=== PATIENT | male | born 1960 | race Caucasian/White ===

== ENCOUNTER 2019-05-30 20:45 | Outpatient (REF) | payer BC, SELFPAY ==
[2019-05-30 21:00] LABS: INR 1.1 (0.9-1.1); Prothrombin Time 10.6 sec (9.3-11.0)
[2019-05-30 21:15] LABS: Abs Immature Grans 0.02 k/cumm (0.0-0.09); Absolute Basophil Count 0.04 k/cumm (0.0-0.2); Absolute Eosinophil Count 0.25 k/cumm (0.0-0.7); Absolute Lymphocyte Count 1.87 k/cumm (1.2-3.4); Absolute Monocyte Count 0.86 k/cumm (0.11-0.7); Absolute Neutrophil Count 5.66 k/cumm (1.2-6.7); Basophils % 0.5; Eosinophils % 2.9; HCT 45.2 % (40.0-50.0); HGB 15.3 g/dL (13.5-17.5); Immature Grans % 0.2; Lymphocytes % 21.5; Mean Corp. HGB Concentration 33.8 g/dL (32.0-36.0); Mean Corpuscular Hemoglobin 32.2 pg (27.0-33.0); Mean Corpuscular Volume 95.2 fL (80-95); Mean Platelet Volume 11.1 fL (8.0-11.0); Monocytes % 9.9; Platelet Count 254 x1000/uL (130-400); RBC 4.75 m/cumm (4.50-6.00); RBC Distribution Width 13.5 % (11.8-14.1)
[2019-05-30 21:38] LABS: ALT 30 U/L (16-63); AST 20 U/L (15-37); Albumin 3.7 g/dL (3.4-5.0); Alkaline Phosphatase 122 U/L (46-116); Anion Gap 8.9 mmol/L (3-11); BUN 25 mg/dL (7-18); Bilirubin, Total 0.2 mg/dL (0.2-1.0); CO2 28.1 mmol/L (21.0-32.0); CREATININE 1.06 mg/dL (0.70-1.30); Calcium 9.2 mg/dL (8.5-10.1); Chloride 107 mmol/L (98-107); Glucose 99 mg/dL (74-106); Potassium 4.7 mmol/L (3.5-5.1); Sodium 144 mmol/L (136-145); Total Protein 6.9 g/dL (6.4-8.2)
== END 2019-05-30 21:05 ==
LOC: NCHCN 20:45
PROVIDERS: PCP Nurse Practitioner Family; Visit Provider Nurse Practitioner Family
DX: M35.1 Other overlap syndromes (principal); Z01.818 Encounter for other preprocedural examination
CPT/HCPCS: 80053; 85025; 85610

== ENCOUNTER 2019-06-26 14:27 | Outpatient (REF) | payer BC, SELFPAY | END 2019-06-26 14:47 | LOC: NCHCN 14:27 | PROVIDERS: PCP Nurse Practitioner Family; Visit Provider Internal Medicine | DX: S91.002D Unspecified open wound, left ankle, subsequent encounter (principal) | CPT/HCPCS: 87077; 87070; 87186; 87205 ==

== ENCOUNTER 2019-09-10 09:14 | Outpatient (REF) | payer BC, SELFPAY ==
[2019-09-10 21:17] LABS: Abs Immature Grans 0.01 k/cumm (0.0-0.09); Absolute Basophil Count 0.05 k/cumm (0.0-0.2); Absolute Eosinophil Count 0.17 k/cumm (0.0-0.7); Absolute Monocyte Count 0.78 k/cumm (0.11-0.7); Absolute Neutrophil Count 5.01 k/cumm (1.2-6.7); Basophils % 0.7; Eosinophils % 2.3; Immature Grans % 0.1 %; Lymphocytes % 19.9; Mean Corp. HGB Concentration 33.3 g/dL (32.0-36.0); Mean Corpuscular Hemoglobin 31.3 pg (27.0-33.0); Mean Corpuscular Volume 93.8 fL (80-95); Mean Platelet Volume 11.3 fL (8.0-11.0); Monocytes % 10.4; Neutrophils % 66.6; Platelet Count 250 x1000/uL (130-400); RBC 5.12 m/cumm (4.50-6.00); RBC Distribution Width 14.1 % (11.8-14.1); White Blood Cell Count 7.52 k/cumm (4.4-10.8)
[2019-09-10 21:18] LABS: ALT 40 U/L (16-63); AST 23 U/L (15-37); Albumin 4.1 g/dL (3.4-5.0); Alkaline Phosphatase 122 U/L (46-116); Anion Gap 8.3 mmol/L (3-11); BUN 20 mg/dL (7-18); Bilirubin, Total 0.3 mg/dL (0.2-1.0); CO2 29.7 mmol/L (21.0-32.0); CREATININE 1.24 mg/dL (0.70-1.30); Calcium 9.4 mg/dL (8.5-10.1); Chloride 106 mmol/L (98-107); Estimated GFR 59.88 (mL/min/1.73m2); Glucose 99 mg/dL (74-106); Potassium 4.6 mmol/L (3.5-5.1); Sodium 144 mmol/L (136-145); Total Protein 7.4 g/dL (6.4-8.2)
[2019-09-10 21:37] LABS: Calculated LDL 167 mg/dL (<100); Cholesterol 238 mg/dL (<200); HDL Cholesterol 48 mg/dL (40-60); Triglyceride 118 mg/dL (<150)
== END 2019-09-10 09:34 ==
LOC: NCHCN 09:14
PROVIDERS: PCP Nurse Practitioner Family; Visit Provider Nurse Practitioner Family
DX: Z13.220 Encounter for screening for lipoid disorders (principal); M35.1 Other overlap syndromes; Z79.899 Other long term (current) drug therapy
CPT/HCPCS: 80053; 80061; 85025

== ENCOUNTER 2019-10-15 12:32 | Outpatient (REF) | payer BC, SELFPAY ==
[2019-10-15 20:32] LABS: ALT 32 U/L (16-63); AST 28 U/L (15-37); Albumin 4.1 g/dL (3.4-5.0); Alkaline Phosphatase 143 U/L (46-116); Anion Gap 6.4 mmol/L (3-11); BUN 20 mg/dL (7-18); Bilirubin, Total 0.6 mg/dL (0.2-1.0); CO2 30.6 mmol/L (21.0-32.0); CREATININE 1.23 mg/dL (0.70-1.30); Calcium 9.4 mg/dL (8.5-10.1); Calculated LDL 109 mg/dL (<100); Chloride 103 mmol/L (98-107); Cholesterol 174 mg/dL (<200); Glucose 86 mg/dL (74-106); HDL Cholesterol 48 mg/dL (40-60); Potassium 4.7 mmol/L (3.5-5.1); Sodium 140 mmol/L (136-145); Total Protein 7.6 g/dL (6.4-8.2); Triglyceride 88 mg/dL (<150)
[2019-10-16 12:18] LABS: GGT 37 U/L (15-85)
== END 2019-10-15 12:52 ==
LOC: NCHCN 12:32
PROVIDERS: PCP Nurse Practitioner Family; Visit Provider Nurse Practitioner Family
DX: I70.219 Atherosclerosis of native arteries of extremities with intermittent claudication, unspecified extremity (principal); R74.8 Abnormal levels of other serum enzymes
CPT/HCPCS: 80053; 80061; 82977

== ENCOUNTER 2019-11-16 11:30 | Outpatient (REF) | payer BC, SELFPAY ==
[2019-11-16 21:02] LABS: ALT 31 U/L (16-63); AST 24 U/L (15-37); Albumin 3.7 g/dL (3.4-5.0); Alkaline Phosphatase 152 U/L (46-116); Anion Gap 4.3 mmol/L (3-11); BUN 16 mg/dL (7-18); Bilirubin, Total 0.5 mg/dL (0.2-1.0); CO2 31.7 mmol/L (21.0-32.0); CREATININE 1.15 mg/dL (0.70-1.30); Calcium 8.8 mg/dL (8.5-10.1); Chloride 106 mmol/L (98-107); Glucose 87 mg/dL (74-106); Potassium 4.1 mmol/L (3.5-5.1); Sodium 142 mmol/L (136-145); TSH (W/Ref FT4) 1.45 uIU/mL (0.36-3.74)
[2019-11-16 21:16] LABS: Calculated LDL 74 mg/dL (<100); Cholesterol 134 mg/dL (<200); HDL Cholesterol 51 mg/dL (40-60); Triglyceride 46 mg/dL (<150)
[2019-11-19 07:29] LABS: Vitamin D 25 Total 30.5 ng/ml (30-100)
[2019-11-19 12:46] LABS: Parathyroid Hormone,Intact 53 pg/mL (19-88)
== END 2019-11-16 11:50 ==
LOC: NCHCN 11:30
PROVIDERS: PCP Nurse Practitioner Family; Visit Provider Nurse Practitioner Family
DX: I70.219 Atherosclerosis of native arteries of extremities with intermittent claudication, unspecified extremity (principal); R74.8 Abnormal levels of other serum enzymes
CPT/HCPCS: 80053; 80061; 82306; 83970; 84443

== ENCOUNTER 2019-12-10 09:44 | Outpatient (REF) | payer BC, SELFPAY ==
[2019-12-12 09:16] LABS: PSA, Screening 3.3 ng/mL (0.0-3.5)
[2019-12-12 11:41] LABS: HIV-1/2 Ag & Ab Screen Negative (Negative)
[2019-12-12 11:47] LABS: Hepatitis C Ab w Rflx HCV PCR Reactive (Negative)
[2019-12-21 09:55] LABS: HCV RNA Qualitative Undetected (Undetected)
== END 2019-12-10 10:04 ==
LOC: NCHCN 09:44
PROVIDERS: PCP Nurse Practitioner Family; Visit Provider Nurse Practitioner Family
DX: Z11.4 Encounter for screening for human immunodeficiency virus [HIV] (principal); Z11.59 Encounter for screening for other viral diseases; Z12.5 Encounter for screening for malignant neoplasm of prostate
CPT/HCPCS: 84153; 86803; 87389; 87522

== ENCOUNTER 2020-02-15 12:36 | Outpatient (REF) | payer BC, SELFPAY ==
[2020-02-15 22:35] LABS: Abs Immature Grans 0.03 10^3/uL (0.0-0.06); Absolute Basophil Count 0.06 10^3/uL (0.0-0.2); Absolute Eosinophil Count 0.16 10^3/uL (0.0-0.7); Absolute Lymphocyte Count 1.44 10^3/uL (1.2-3.4); Absolute Monocyte Count 0.68 10^3/uL (0.1-0.8); Absolute Neutrophil Count 5.09 10^3/uL (1.2-6.7); Basophils % 0.8; Eosinophils % 2.1; HCT 49.2 % (40.0-50.0); HGB 16.3 g/dL (13.5-17.5); Immature Grans % 0.4; Lymphocytes % 19.3; MCH 32.1 pg (27.0-33.0); MCHC 33.1 % (32.0-36.0); MPV 11.2 fL (8.0-11.0); Monocytes % 9.1; Neutrophils % 68.3; Nucleated RBC 0 %; Platelet Count 236 10^3/uL (130-400); RBC 5.07 10^6/uL (4.36-5.78); RDW 13.7 % (11.8-14.1); RDW-SD 48.4 fL; WBC 7.46 10^3/uL (4.4-10.8)
[2020-02-15 22:53] LABS: ALT 33 U/L (16-63); AST 22 U/L (15-37); Albumin 3.6 g/dL (3.4-5.0); Alkaline Phosphatase 154 U/L (46-116); Anion Gap 7.7 mmol/L (3-11); BUN 20 mg/dL (7-18); Bilirubin, Total 0.6 mg/dL (0.2-1.0); CO2 29.3 mmol/L (21.0-32.0); CREATININE 1.13 mg/dL (0.70-1.30); Chloride 103 mmol/L (98-107); Glucose 90 mg/dL (74-106); Potassium 4.2 mmol/L (3.5-5.1); Sodium 140 mmol/L (136-145)
== END 2020-02-15 12:56 ==
LOC: LBN 12:36
PROVIDERS: PCP Nurse Practitioner Family; Visit Provider Internal Medicine Rheumatology
DX: M35.1 Other overlap syndromes (principal); Z79.899 Other long term (current) drug therapy
CPT/HCPCS: 80053; 85025

== ENCOUNTER 2020-03-27 14:58 | Outpatient (REF) | payer BC, SELFPAY ==
[2020-03-31 11:12] LABS: Lyme Ab w Rflx to Lyme Confirm Negative (Negative)
[2020-03-31 20:28] LABS: Anaplasma phagocytophilum Negative (Negative); B. miyamotoi PCR Negative (Negative); Babesia divergens/MO-1 Negative (Negative); Babesia duncani Negative (Negative); Babesia microti Negative (Negative); Ehrlichia chaffeensis Negative (Negative); Ehrlichia ewingii/canis Negative (Negative); Ehrlichia muris eauclairensis Negative (Negative)
== END 2020-03-27 15:18 ==
LOC: NCHCN 14:58
PROVIDERS: PCP Nurse Practitioner Family; Visit Provider Family Medicine
DX: G51.0 Bell's palsy (principal)
CPT/HCPCS: 87798; 86618

== ENCOUNTER 2020-05-12 21:11 | Outpatient (REF) | payer BC, SELFPAY ==
[2020-05-12 21:17] LABS: Abs Immature Grans 0.03 10^3/uL (0.0-0.06); Absolute Basophil Count 0.07 10^3/uL (0.0-0.2); Absolute Eosinophil Count 0.16 10^3/uL (0.0-0.7); Absolute Lymphocyte Count 1.65 10^3/uL (1.2-3.4); Absolute Monocyte Count 0.62 10^3/uL (0.1-0.8); Basophils % 0.8; Eosinophils % 1.9; HCT 48.7 % (40.0-50.0); HGB 16.2 g/dL (13.5-17.5); Immature Grans % 0.4; Lymphocytes % 19.8; MCH 32.3 pg (27.0-33.0); MCHC 33.3 % (32.0-36.0); MCV 97.2 fL (80-95); MPV 11.5 fL (8.0-11.0); Monocytes % 7.4; Neutrophils % 69.7; Nucleated RBC 0 %; Platelet Count 216 10^3/uL (130-400); RBC 5.01 10^6/uL (4.36-5.78); RDW 13.4 % (11.8-14.1); WBC 8.33 10^3/uL (4.4-10.8)
[2020-05-12 21:51] LABS: ALT 36 U/L (16-63); AST 23 U/L (15-37); Albumin 3.7 g/dL (3.4-5.0); Alkaline Phosphatase 139 U/L (46-116); Anion Gap 10.2 mmol/L (3-11); BUN 22 mg/dL (7-18); Bilirubin, Total 0.3 mg/dL (0.2-1.0); CO2 24.8 mmol/L (21.0-32.0); Calcium 8.4 mg/dL (8.5-10.1); Chloride 106 mmol/L (98-107); Glucose 87 mg/dL (74-106); Potassium 4.7 mmol/L (3.5-5.1); Sodium 141 mmol/L (136-145); Total Protein 6.7 g/dL (6.4-8.2)
== END 2020-05-12 21:31 ==
LOC: LBN 21:11
PROVIDERS: PCP Nurse Practitioner Family; Referring Provider Nurse Practitioner Family; Visit Provider Internal Medicine Rheumatology
DX: M35.1 Other overlap syndromes (principal); Z79.899 Other long term (current) drug therapy
CPT/HCPCS: 80053; 85025

== ENCOUNTER 2020-08-12 11:47 | Outpatient (REF) | payer OTHER, SELFPAY ==
[2020-08-12 13:38] LABS: Abs Immature Grans 0.02 10^3/uL (0.0-0.06); Absolute Basophil Count 0.08 10^3/uL (0.0-0.2); Absolute Eosinophil Count 0.24 10^3/uL (0.0-0.7); Absolute Lymphocyte Count 1.64 10^3/uL (1.2-3.4); Absolute Monocyte Count 0.93 10^3/uL (0.1-0.8); Absolute Neutrophil Count 6.68 10^3/uL (1.2-6.7); Basophils % 0.8; Eosinophils % 2.5; HCT 48.8 % (40.0-50.0); HGB 16.2 g/dL (13.5-17.5); Immature Grans % 0.2; Lymphocytes % 17.1; MCHC 33.2 % (32.0-36.0); MCV 96.4 fL (80-95); MPV 11.2 fL (8.0-11.0); Monocytes % 9.7; Neutrophils % 69.7; Nucleated RBC 0 %; Platelet Count 246 10^3/uL (130-400); RBC 5.06 10^6/uL (4.36-5.78); RDW-SD 46.2 fL; WBC 9.59 10^3/uL (4.4-10.8)
[2020-08-12 13:47] LABS: ALT 31 U/L (16-63); AST 20 U/L (15-37); Albumin 3.8 g/dL (3.4-5.0); Alkaline Phosphatase 152 U/L (46-116); Anion Gap 9.5 mmol/L (3-11); BUN 18 mg/dL (7-18); Bilirubin, Total 0.6 mg/dL (0.2-1.0); CO2 28.5 mmol/L (21.0-32.0); CREATININE 1.2 mg/dL (0.70-1.30); Calcium 9.5 mg/dL (8.5-10.1); Chloride 104 mmol/L (98-107); Glucose 97 mg/dL (74-106); Potassium 4.4 mmol/L (3.5-5.1); Sodium 142 mmol/L (136-145); Total Protein 7.1 g/dL (6.4-8.2)
[2020-08-15 15:00] LABS: Alkaline Phosphatase 151 U/L (40 - 129); Bone % 37.9 % (19.1-67.7); Liver % 57.5 % (27.8-76.3); Liver 2% 4.6 % (0.0-8.0)
== END 2020-08-12 11:48 | disposition home or self-care (01) ==
LOC: NCHCN 11:47
PROVIDERS: Internal Medicine Rheumatology; PCP Nurse Practitioner Family; Visit Provider Nurse Practitioner Family
DX: M35.1 Other overlap syndromes (principal); Z79.899 Other long term (current) drug therapy; R74.8 Abnormal levels of other serum enzymes
CPT/HCPCS: 80053; 84075; 84080; 85025

== ENCOUNTER 2020-11-10 08:54 | Outpatient (REF) | payer OTHER, SELFPAY ==
[2020-11-10 13:23] LABS: Abs Immature Grans 0.02 10^3/uL (0.0-0.06); Absolute Basophil Count 0.08 10^3/uL (0.0-0.2); Absolute Eosinophil Count 0.16 10^3/uL (0.0-0.7); Absolute Monocyte Count 0.64 10^3/uL (0.1-0.8); Basophils % 0.9; Eosinophils % 1.9; HCT 47.7 % (40.0-50.0); HGB 15.6 g/dL (13.5-17.5); Immature Grans % 0.2; Lymphocytes % 15.1; MCH 31.2 pg (27.0-33.0); MCHC 32.7 % (32.0-36.0); MCV 95.4 fL (80-95); Monocytes % 7.4; Neutrophils % 74.5; Nucleated RBC 0 %; Platelet Count 267 10^3/uL (130-400); RDW 13.4 % (11.8-14.1); RDW-SD 47.2 fL
[2020-11-10 13:49] LABS: ALT 41 U/L (16-63); AST 25 U/L (15-37); Albumin 3.5 g/dL (3.4-5.0); Alkaline Phosphatase 158 U/L (46-116); Anion Gap 9.6 mmol/L (3-11); BUN 19 mg/dL (7-18); Bilirubin, Total 0.4 mg/dL (0.2-1.0); CO2 27.4 mmol/L (21.0-32.0); CREATININE 1.2 mg/dL (0.70-1.30); Calcium 8.6 mg/dL (8.5-10.1); Calculated LDL 82 mg/dL (<100); Chloride 106 mmol/L (98-107); Cholesterol 143 mg/dL (<200); Glucose 90 mg/dL (74-106); HDL Cholesterol 47 mg/dL (40-60); Potassium 4.4 mmol/L (3.5-5.1); Sodium 143 mmol/L (136-145); Total Protein 6.9 g/dL (6.4-8.2); Triglyceride 74 mg/dL (<150)
[2020-11-10 14:02] LABS: Hemoglobin A1C 5.6 % (<5.7)
== END 2020-11-10 08:55 | disposition home or self-care (01) ==
LOC: NCHCN 08:54
PROVIDERS: PCP Nurse Practitioner Family; Visit Provider Nurse Practitioner Family
DX: R73.03 Prediabetes (principal); Z13.220 Encounter for screening for lipoid disorders; M35.1 Other overlap syndromes; Z79.899 Other long term (current) drug therapy
CPT/HCPCS: 80053; 80061; 83036; 85025

== ENCOUNTER 2021-02-09 10:19 | Outpatient (REF) | payer OTHER, SELFPAY ==
[2021-02-09 14:17] LABS: Abs Immature Grans 0.02 10^3/uL (0.0-0.06); Absolute Basophil Count 0.06 10^3/uL (0.0-0.2); Absolute Eosinophil Count 0.16 10^3/uL (0.0-0.7); Absolute Monocyte Count 0.84 10^3/uL (0.1-0.8); Absolute Neutrophil Count 5.62 10^3/uL (1.2-6.7); Basophils % 0.8; HCT 47.8 % (40.0-50.0); HGB 15.6 g/dL (13.5-17.5); Immature Grans % 0.3; Lymphocytes % 16.3; MCHC 32.6 % (32.0-36.0); MPV 11.7 fL (8.0-11.0); Monocytes % 10.5; Neutrophils % 70.1; Nucleated RBC 0 %; Platelet Count 214 10^3/uL (130-400); RBC 4.88 10^6/uL (4.36-5.78); RDW 14.2 % (11.8-14.1); RDW-SD 51.2 fL
[2021-02-09 14:31] LABS: ALT 28 U/L (16-63); AST 18 U/L (15-37); Albumin 3.7 g/dL (3.4-5.0); Alkaline Phosphatase 149 U/L (46-116); Anion Gap 10.2 mmol/L (3-11); BUN 19 mg/dL (7-18); Bilirubin, Total 0.4 mg/dL (0.2-1.0); CO2 27.8 mmol/L (21.0-32.0); CREATININE 1.1 mg/dL (0.70-1.30); Calcium 8.7 mg/dL (8.5-10.1); Chloride 106 mmol/L (98-107); Glucose 84 mg/dL (74-106); Potassium 4.5 mmol/L (3.5-5.1); Sodium 144 mmol/L (136-145); Total Protein 6.8 g/dL (6.4-8.2)
== END 2021-02-09 10:20 | disposition home or self-care (01) ==
LOC: NCHCN 10:19
PROVIDERS: PCP Nurse Practitioner Family; Visit Provider Internal Medicine Rheumatology
DX: M35.1 Other overlap syndromes (principal); Z79.899 Other long term (current) drug therapy
CPT/HCPCS: 80053; 85025

== ENCOUNTER 2021-04-27 09:46 | Outpatient (REF) | payer OTHER, SELFPAY ==
[2021-04-27 14:32] LABS: Abs Immature Grans 0.02 10^3/uL (0.0-0.06); Absolute Eosinophil Count 0.22 10^3/uL (0.0-0.7); Absolute Lymphocyte Count 1.46 10^3/uL (1.2-3.4); Absolute Monocyte Count 0.72 10^3/uL (0.1-0.8); Absolute Neutrophil Count 6.64 10^3/uL (1.2-6.7); Basophils % 1.1; Eosinophils % 2.4; HCT 49.6 % (40.0-50.0); Immature Grans % 0.2; Lymphocytes % 15.9; MCH 31.6 pg (27.0-33.0); MCHC 32.3 % (32.0-36.0); MPV 11.4 fL (8.0-11.0); Monocytes % 7.9; Neutrophils % 72.5; Nucleated RBC 0 %; Platelet Count 236 10^3/uL (130-400); RBC 5.06 10^6/uL (4.36-5.78); RDW 13.7 % (11.8-14.1); RDW-SD 49.6 fL; WBC 9.16 10^3/uL (4.4-10.8)
[2021-04-27 14:42] LABS: ALT 32 U/L (16-63); AST 19 U/L (15-37); Albumin 3.8 g/dL (3.4-5.0); Alkaline Phosphatase 140 U/L (46-116); Anion Gap 12.3 mmol/L (3-11); BUN 20 mg/dL (7-18); Bilirubin, Total 0.4 mg/dL (0.2-1.0); CO2 24.7 mmol/L (21.0-32.0); CREATININE 1.1 mg/dL (0.70-1.30); Chloride 106 mmol/L (98-107); Glucose 100 mg/dL (74-106); Potassium 4.5 mmol/L (3.5-5.1); Sodium 143 mmol/L (136-145); Total Protein 6.9 g/dL (6.4-8.2)
== END 2021-04-27 09:47 | disposition home or self-care (01) ==
LOC: LBN 09:46
PROVIDERS: PCP Nurse Practitioner Family; Visit Provider Internal Medicine Rheumatology
DX: Z79.899 Other long term (current) drug therapy (principal); M35.1 Other overlap syndromes
CPT/HCPCS: 80053; 85025

== ENCOUNTER 2021-07-28 14:25 | Outpatient (REF) | payer OTHER, SELFPAY ==
[2021-07-28 14:35] LABS: Abs Immature Grans 0.03 10^3/uL (0.0-0.06); Absolute Basophil Count 0.07 10^3/uL (0.0-0.2); Absolute Eosinophil Count 0.21 10^3/uL (0.0-0.7); Absolute Lymphocyte Count 1.62 10^3/uL (1.2-3.4); Absolute Monocyte Count 0.74 10^3/uL (0.1-0.8); Absolute Neutrophil Count 6.62 10^3/uL (1.2-6.7); Basophils % 0.8; Eosinophils % 2.3; HCT 47.4 % (40.0-50.0); HGB 15.3 g/dL (13.5-17.5); Immature Grans % 0.3; Lymphocytes % 17.4; MCH 31.3 pg (27.0-33.0); MCHC 32.3 % (32.0-36.0); MCV 96.9 fL (80-95); MPV 11.5 fL (8.0-11.0); Neutrophils % 71.2; Nucleated RBC 0 %; Platelet Count 255 10^3/uL (130-400); RBC 4.89 10^6/uL (4.36-5.78); RDW 12.9 % (11.8-14.1); RDW-SD 45.8 fL; WBC 9.29 10^3/uL (4.4-10.8)
[2021-07-28 14:40] LABS: ALT 30 U/L (16-63); AST 26 U/L (15-37); Albumin 3.9 g/dL (3.4-5.0); Alkaline Phosphatase 140 U/L (46-116); BUN 21 mg/dL (7-18); Bilirubin, Total 0.4 mg/dL (0.2-1.0); Calcium 9.2 mg/dL (8.5-10.1); Chloride 104 mmol/L (98-107); Glucose 92 mg/dL (74-106); Potassium 4.7 mmol/L (3.5-5.1); Sodium 139 mmol/L (136-145); Total Protein 7.2 g/dL (6.4-8.2)
== END 2021-07-28 14:26 | disposition home or self-care (01) ==
LOC: LBN 14:25
PROVIDERS: PCP Nurse Practitioner Family; Visit Provider Internal Medicine Rheumatology
DX: M35.1 Other overlap syndromes (principal); Z79.899 Other long term (current) drug therapy
CPT/HCPCS: 80053; 85025

== ENCOUNTER 2021-10-26 15:14 | Outpatient (REF) | payer MEDICARE, SELFPAY ==
[2021-10-26 17:56] LABS: Abs Immature Grans 0.02 10^3/uL (0.0-0.06); Absolute Basophil Count 0.07 10^3/uL (0.0-0.2); Absolute Eosinophil Count 0.22 10^3/uL (0.0-0.7); Absolute Lymphocyte Count 1.38 10^3/uL (1.2-3.4); Absolute Monocyte Count 0.74 10^3/uL (0.1-0.8); Absolute Neutrophil Count 5.74 10^3/uL (1.2-6.7); Basophils % 0.9; Eosinophils % 2.7; HCT 50.8 % (40.0-50.0); HGB 16.4 g/dL (13.5-17.5); Immature Grans % 0.2; Lymphocytes % 16.9; MCH 31.7 pg (27.0-33.0); MCHC 32.3 % (32.0-36.0); MCV 98 fL (80-95); MPV 11.2 fL (8.0-11.0); Monocytes % 9.1; Neutrophils % 70.2; Platelet Count 251 10^3/uL (130-400); RBC 5.18 10^6/uL (4.36-5.78); RDW 13.2 % (11.8-14.1); RDW-SD 48.5 fL; WBC 8.17 10^3/uL (4.4-10.8)
[2021-10-26 18:07] LABS: ALT 34 U/L (16-63); AST 24 U/L (15-37); Albumin 3.8 g/dL (3.4-5.0); Alkaline Phosphatase 167 U/L (46-116); Anion Gap 7.3 mmol/L (3-11); BUN 24 mg/dL (7-18); Bilirubin, Total 0.6 mg/dL (0.2-1.0); CO2 28.7 mmol/L (21.0-32.0); CREATININE 1.1 mg/dL (0.70-1.30); Calcium 8.7 mg/dL (8.5-10.1); Chloride 105 mmol/L (98-107); Glucose 86 mg/dL (74-106); Potassium 4.3 mmol/L (3.5-5.1); Sodium 141 mmol/L (136-145)
== END 2021-10-26 15:15 | disposition home or self-care (01) ==
LOC: LBN 15:14
PROVIDERS: PCP Nurse Practitioner Family; Visit Provider Internal Medicine Rheumatology
DX: G62.89 Other specified polyneuropathies (principal); Z79.899 Other long term (current) drug therapy; M35.1 Other overlap syndromes
CPT/HCPCS: 80053; 85025

== ENCOUNTER 2021-12-29 07:42 | Outpatient (REF) | payer MEDICARE, SELFPAY ==
[2021-12-29 15:19] LABS: Abs Immature Grans 0.03 10^3/uL (0.0-0.06); Absolute Basophil Count 0.07 10^3/uL (0.0-0.2); Absolute Eosinophil Count 0.19 10^3/uL (0.0-0.7); Absolute Lymphocyte Count 1.37 10^3/uL (1.2-3.4); Absolute Monocyte Count 0.66 10^3/uL (0.1-0.8); Absolute Neutrophil Count 7.46 10^3/uL (1.2-6.7); Basophils % 0.7; Eosinophils % 1.9; HCT 48.2 % (40.0-50.0); HGB 16.3 g/dL (13.5-17.5); Immature Grans % 0.3; MCH 32.3 pg (27.0-33.0); MCHC 33.8 % (32.0-36.0); MCV 96 fL (80-95); MPV 11.4 fL (8.0-11.0); Monocytes % 6.7; Neutrophils % 76.4; Platelet Count 236 10^3/uL (130-400); RBC 5.04 10^6/uL (4.36-5.78); RDW 13.8 % (11.8-14.1); RDW-SD 47.8 fL; WBC 9.78 10^3/uL (4.4-10.8)
[2021-12-29 15:33] LABS: ALT 54 U/L (16-63); AST 41 U/L (15-37); Albumin 3.6 g/dL (3.4-5.0); Alkaline Phosphatase 149 U/L (46-116); Anion Gap 9.7 mmol/L (3-11); BUN 21 mg/dL (7-18); Bilirubin, Total 0.4 mg/dL (0.2-1.0); CO2 26.3 mmol/L (21.0-32.0); CREATININE 1.2 mg/dL (0.70-1.30); Calcium 9.1 mg/dL (8.5-10.1); Chloride 104 mmol/L (98-107); Glucose 109 mg/dL (74-106); Potassium 4.1 mmol/L (3.5-5.1); Sodium 140 mmol/L (136-145); Total Protein 7.3 g/dL (6.4-8.2)
== END 2021-12-29 07:43 | disposition home or self-care (01) ==
LOC: LBN 07:42
PROVIDERS: PCP Nurse Practitioner Family; Visit Provider Internal Medicine Rheumatology
DX: M35.1 Other overlap syndromes (principal); G62.89 Other specified polyneuropathies; Z79.899 Other long term (current) drug therapy
CPT/HCPCS: 80053; 85025

== ENCOUNTER 2022-03-29 14:06 | Outpatient (REF) | payer MEDICARE, SELFPAY ==
[2022-03-29 14:33] LABS: Abs Immature Grans 0.03 10^3/uL (0.0-0.06); Absolute Basophil Count 0.06 10^3/uL (0.0-0.2); Absolute Eosinophil Count 0.19 10^3/uL (0.0-0.7); Absolute Lymphocyte Count 1.56 10^3/uL (1.2-3.4); Absolute Monocyte Count 0.77 10^3/uL (0.1-0.8); Absolute Neutrophil Count 5.73 10^3/uL (1.2-6.7); Basophils % 0.7; Eosinophils % 2.3; HCT 48.2 % (40.0-50.0); HGB 15.9 g/dL (13.5-17.5); Immature Grans % 0.4; Lymphocytes % 18.7; MCV 97 fL (80-95); MPV 11.2 fL (8.0-11.0); Monocytes % 9.2; Neutrophils % 68.7; Platelet Count 225 10^3/uL (130-400); RBC 4.97 10^6/uL (4.36-5.78); RDW 13.6 % (11.8-14.1); RDW-SD 48.5 fL; WBC 8.34 10^3/uL (4.4-10.8)
[2022-03-29 14:50] LABS: ALT 31 U/L (16-63); AST 26 U/L (15-37); Albumin 3.7 g/dL (3.4-5.0); Alkaline Phosphatase 147 U/L (46-116); Anion Gap 7.7 mmol/L (3-11); BUN 20 mg/dL (7-18); Bilirubin, Total 0.5 mg/dL (0.2-1.0); CO2 27.3 mmol/L (21.0-32.0); CREATININE 1.1 mg/dL (0.70-1.30); Calcium 9.2 mg/dL (8.5-10.1); Chloride 104 mmol/L (98-107); Estimated GFR 76.85 (mL/min/1.73m2); Glucose 107 mg/dL (74-106); Potassium 4.1 mmol/L (3.5-5.1); Sodium 139 mmol/L (136-145); Total Protein 7.4 g/dL (6.4-8.2)
== END 2022-03-29 14:07 | disposition home or self-care (01) ==
LOC: LBN 14:06
PROVIDERS: PCP Nurse Practitioner Family; Visit Provider Internal Medicine Rheumatology
DX: M35.1 Other overlap syndromes (principal); G62.89 Other specified polyneuropathies; Z79.899 Other long term (current) drug therapy
CPT/HCPCS: 80053; 85025

== ENCOUNTER 2022-06-29 07:56 | Outpatient (REF) | payer MEDICARE, SELFPAY ==
[2022-06-29 15:54] LABS: Abs Immature Grans 0.02 10^3/uL (0.0-0.06); Absolute Basophil Count 0.05 10^3/uL (0.0-0.2); Absolute Eosinophil Count 0.11 10^3/uL (0.0-0.7); Absolute Lymphocyte Count 1.11 10^3/uL (1.2-3.4); Absolute Monocyte Count 0.64 10^3/uL (0.1-0.8); Absolute Neutrophil Count 5.75 10^3/uL (1.2-6.7); Basophils % 0.7; Eosinophils % 1.4; HCT 46.5 % (40.0-50.0); HGB 15.4 g/dL (13.5-17.5); Immature Grans % 0.3; Lymphocytes % 14.5; MCH 31.7 pg (27.0-33.0); MCHC 33.1 % (32.0-36.0); MCV 96 fL (80-95); MPV 11.1 fL (8.0-11.0); Monocytes % 8.3; Neutrophils % 74.8; Platelet Count 254 10^3/uL (130-400); RBC 4.86 10^6/uL (4.36-5.78); RDW 13.2 % (11.8-14.1); RDW-SD 46.7 fL; WBC 7.68 10^3/uL (4.4-10.8)
[2022-06-29 16:10] LABS: ALT 30 U/L (16-63); AST 27 U/L (15-37); Albumin 3.8 g/dL (3.4-5.0); Alkaline Phosphatase 165 U/L (46-116); Anion Gap 8.2 mmol/L (3-11); BUN 20 mg/dL (7-18); Bilirubin, Total 0.7 mg/dL (0.2-1.0); CO2 26.8 mmol/L (21.0-32.0); CREATININE 1.1 mg/dL (0.70-1.30); Calcium 9.1 mg/dL (8.5-10.1); Chloride 104 mmol/L (98-107); Estimated GFR 76.37 (mL/min/1.73m2); Glucose 93 mg/dL (74-106); Potassium 4.2 mmol/L (3.5-5.1); Sodium 139 mmol/L (136-145); Total Protein 7.9 g/dL (6.4-8.2)
== END 2022-06-29 07:57 | disposition home or self-care (01) ==
LOC: LBN 07:56
PROVIDERS: PCP Nurse Practitioner Family; Visit Provider Nurse Practitioner Family
DX: M35.1 Other overlap syndromes (principal); G62.89 Other specified polyneuropathies; Z79.899 Other long term (current) drug therapy
CPT/HCPCS: 80053; 85025

== ENCOUNTER 2022-09-27 08:56 | Outpatient (REF) | payer MEDICARE, SELFPAY ==
[2022-09-27 15:54] LABS: Abs Immature Grans 0.03 10^3/uL (0.0-0.06); Absolute Basophil Count 0.08 10^3/uL (0.0-0.2); Absolute Eosinophil Count 0.23 10^3/uL (0.0-0.7); Absolute Lymphocyte Count 1.56 10^3/uL (1.2-3.4); Absolute Monocyte Count 0.92 10^3/uL (0.1-0.8); Absolute Neutrophil Count 5.31 10^3/uL (1.2-6.7); Eosinophils % 2.8; Immature Grans % 0.4; Lymphocytes % 19.2; MCH 31.6 pg (27.0-33.0); MCHC 32.7 % (32.0-36.0); MCV 97 fL (80-95); MPV 11.8 fL (8.0-11.0); Monocytes % 11.3; Neutrophils % 65.3; Platelet Count 251 10^3/uL (130-400); RBC 5.07 10^6/uL (4.36-5.78); RDW 13.7 % (11.8-14.1); RDW-SD 48.8 fL; WBC 8.13 10^3/uL (4.4-10.8)
[2022-09-27 16:12] LABS: ALT 26 U/L (16-63); AST 20 U/L (15-37); Albumin 3.8 g/dL (3.4-5.0); Alkaline Phosphatase 156 U/L (46-116); Anion Gap 7.6 mmol/L (3-11); BUN 20 mg/dL (7-18); Bilirubin, Total 0.4 mg/dL (0.2-1.0); CO2 28.4 mmol/L (21.0-32.0); CREATININE 1.1 mg/dL (0.70-1.30); Calcium 9.5 mg/dL (8.5-10.1); Chloride 105 mmol/L (98-107); Estimated GFR 76.37 (mL/min/1.73m2); Glucose 96 mg/dL (74-106); Potassium 4.3 mmol/L (3.5-5.1); Sodium 141 mmol/L (136-145); Total Protein 7.8 g/dL (6.4-8.2)
== END 2022-09-27 08:57 | disposition home or self-care (01) ==
LOC: LBN 08:56
PROVIDERS: PCP Nurse Practitioner Family; Visit Provider Nurse Practitioner Family
DX: M35.1 Other overlap syndromes (principal); G62.89 Other specified polyneuropathies
CPT/HCPCS: 80053; 85025

== ENCOUNTER 2022-12-29 15:57 | Outpatient (REF) | payer MEDICARE, SELFPAY ==
[2022-12-29 16:42] LABS: Abs Immature Grans 0.03 10^3/uL (0.0-0.06); Absolute Basophil Count 0.08 10^3/uL (0.0-0.2); Absolute Eosinophil Count 0.26 10^3/uL (0.0-0.7); Absolute Lymphocyte Count 1.63 10^3/uL (1.2-3.4); Absolute Monocyte Count 0.96 10^3/uL (0.1-0.8); Absolute Neutrophil Count 6.07 10^3/uL (1.2-6.7); Basophils % 0.9; Eosinophils % 2.9; HCT 47.5 % (40.0-50.0); HGB 15.6 g/dL (13.5-17.5); Immature Grans % 0.3; Lymphocytes % 18.1; MCHC 32.8 % (32.0-36.0); MCV 98 fL (80-95); MPV 12.4 fL (8.0-11.0); Monocytes % 10.6; Neutrophils % 67.2; Platelet Count 273 10^3/uL (130-400); RBC 4.87 10^6/uL (4.36-5.78); RDW 13.5 % (11.8-14.1); RDW-SD 48.5 fL; WBC 9.03 10^3/uL (4.4-10.8)
[2022-12-29 17:03] LABS: ALT 26 U/L (16-63); AST 24 U/L (15-37); Albumin 3.5 g/dL (3.4-5.0); Alkaline Phosphatase 154 U/L (46-116); Anion Gap 8.2 mmol/L (3-11); BUN 20 mg/dL (7-18); Bilirubin, Total 0.4 mg/dL (0.2-1.0); CO2 27.8 mmol/L (21.0-32.0); CREATININE 1.1 mg/dL (0.70-1.30); Calcium 9.3 mg/dL (8.5-10.1); Chloride 106 mmol/L (98-107); Estimated GFR 76.37 (mL/min/1.73m2); Glucose 92 mg/dL (74-106); Potassium 4.8 mmol/L (3.5-5.1); Sodium 142 mmol/L (136-145); Total Protein 7.9 g/dL (6.4-8.2)
== END 2022-12-29 15:58 | disposition home or self-care (01) ==
LOC: LBN 15:57
PROVIDERS: PCP Nurse Practitioner Family; Visit Provider Nurse Practitioner Family
DX: M35.1 Other overlap syndromes (principal); G62.89 Other specified polyneuropathies; Z79.899 Other long term (current) drug therapy
CPT/HCPCS: 80053; 85025

== ENCOUNTER 2023-03-29 14:48 | Outpatient (REF) | payer MEDICARE, SELFPAY ==
[2023-03-29 16:08] LABS: ALT 28 U/L (16-63); AST 25 U/L (15-37); Albumin 3.7 g/dL (3.4-5.0); Alkaline Phosphatase 161 U/L (46-116); Anion Gap 9.7 mmol/L (3-11); BUN 22 mg/dL (7-18); Bilirubin, Total 0.4 mg/dL (0.2-1.0); CO2 25.3 mmol/L (21.0-32.0); CREATININE 1.2 mg/dL (0.70-1.30); Calcium 9.6 mg/dL (8.5-10.1); Chloride 103 mmol/L (98-107); Glucose 125 mg/dL (74-106); Sodium 138 mmol/L (136-145)
[2023-03-29 16:10] LABS: Abs Immature Grans 0.03 10^3/uL (0.0-0.06); Absolute Basophil Count 0.08 10^3/uL (0.0-0.2); Absolute Eosinophil Count 0.11 10^3/uL (0.0-0.7); Absolute Lymphocyte Count 1.28 10^3/uL (1.2-3.4); Absolute Monocyte Count 0.69 10^3/uL (0.1-0.8); Absolute Neutrophil Count 5.95 10^3/uL (1.2-6.7); Eosinophils % 1.4; HCT 47.5 % (40.0-50.0); HGB 15.6 g/dL (13.5-17.5); Immature Grans % 0.4; Lymphocytes % 15.7; MCH 31.3 pg (27.0-33.0); MCHC 32.8 % (32.0-36.0); MCV 95 fL (80-95); MPV 11.7 fL (8.0-11.0); Monocytes % 8.5; Platelet Count 273 10^3/uL (130-400); RBC 4.99 10^6/uL (4.36-5.78); RDW-SD 48.7 fL; WBC 8.14 10^3/uL (4.4-10.8)
[2023-03-29 16:37] LABS: Total Protein 7.8 g/dL (6.4-8.2)
== END 2023-03-29 14:49 | disposition home or self-care (01) ==
LOC: LBN 14:48
PROVIDERS: PCP Nurse Practitioner Family; Visit Provider Nurse Practitioner Family
DX: M35.1 Other overlap syndromes (principal); G62.89 Other specified polyneuropathies; Z79.899 Other long term (current) drug therapy
CPT/HCPCS: 80053; 85025

== ENCOUNTER 2023-06-30 10:37 | Outpatient (REF) | payer MEDICARE, SELFPAY ==
--- OUTSIDE RECORDS SUMMARY | 2023-06-30 10:40 | XMS_ITS | CCD ---
Author Name Unknown Address [address] [place] [address] [id number] Organization Unknown Address [address] [place] [address] [id number] Care Team Providers Care Brick Cleaner Name Role Phone DAVID HENSON Attending Physician [phone] Vital Signs Unknown or Not Available. Allergies Allergy Code Allergy Type Reaction Status PENICILLINS (CLASS) 84065 Drug allergy UNKNOWN Act amara Procedures Unknown or Not Available. History of Immunizations Unknown or Not Available. Problems Problem Code Start Date Resolved Date Status Carpal tunnel syndrome of lt arm [id number] Active Results Unknown or Not Available. Active Medications Medication Code Dose Units Frequency Route Modificatio n Start Date/Time Ibuprofen 200MG Oral Tablet 563393 3 TABLET THREE TIMES A DAY ORAL 08/03/2022 11:21 Prescription Detail TAKE 3 TABLET ORAL THREE TIMES A DAY FOR 3-5 DAYS THEN NEEDED Medications Administered During Visit Unknown or Not Available. Encounters Encounter Diagnosis Diagnosis Code Start Date Carpal tunnel syndrome, right upper limb G5601 11/18/2022 Social History Smoking Status Code Start Date End Date Current every day smoker [id number] Patient Decision Aids Unknown or Not Available. Discharge Instructions You were admitted to [facility] on 11/18/2022 00:25 with a principal diagnosis of Carpal tunnel syndrome, right upper limb You were discharged from [facility] on 11/18/2022 00:25 Should you have any questions prior to discharge, please contact a member of your healthcare team. If you have left the hospital and have any questions, please contact your primary care physician. Chief Complaint and Reason For Visit Unknown or Not Available. Function Status Unknown or Not Available. Plan of Care Unknown or Not Available. Referral/Transition of Care Unknown or Not Available.
--- OUTSIDE RECORDS SUMMARY | 2023-06-30 10:40 | XMS_ITS | CCD ---
Author Name Unknown Address [address] [place] [address] [id number] Organization Unknown Address [address] [place], [place] [id number] Care Team Providers Care Shoe Repairer Apprentice Name Role Phone DAVID HENSON Attending Physician [phone] DAVID HENSON Rounding (Secondary) Physic justen [phone] Vital Signs Unknown or Not Available. Allergies Allergy Code Allergy Type Reaction Status PENICILLINS (CLASS) 65961 Drug allergy UNKNOWN Act amara Procedures Unknown or Not Available. History of Immunizations Unknown or Not Available. Problems Problem Code Start Date Resolved Date Status Carpal tunnel syndrome of lt arm [id number] Active Results Unknown or Not Available. Active Medications Medication Code Dose Units Frequency Route Modificatio n Start Date/Time Ibuprofen 200MG Oral Tablet 835168 3 TABLET THREE TIMES A DAY ORAL 08/03/2022 11:21 Prescription Detail TAKE 3 TABLET ORAL THREE TIMES A DAY FOR 3-5 DAYS THEN NEEDED Medications Administered During Visit Unknown or Not Available. Encounters Encounter Diagnosis Diagnosis Code Start Date Dehiscence of external surgical incision wound 1 [id number] 11/29/2022 Social History Smoking Status Code Start Date End Date Current every day smoker [id number] Patient Decision Aids Unknown or Not Available. Discharge Instructions You were admitted to [facility] on 11/29/2022 00:00 with a principal diagnosis of Disruption of external operation (surgical) wound, not elsewhere classified, initial encounter You were discharged from [facility] on 11/29/2022 00:00 Should you have any questions prior to [...]
--- OUTSIDE RECORDS SUMMARY | 2023-06-30 10:40 | XMS_ITS | CCD ---
Author Name Unknown Address [address] [place] [address] [id number] Organization Unknown Address [address] [place] [address] [phone] Care Team Providers Care Seed Cleaning Machine Operator Name Role Phone NIRU PIPER Attending Physician [phone] NIRU PIPER Rounding (Secondary) Physician [phone] Vital Signs Unknown or Not Available. Allergies Allergy Code Allergy Type Reaction Status PENICILLINS (CLASS) 15765 Drug allergy UNKNOWN Act amara Procedures Unknown or Not Available. History of Immunizations Unknown or Not Available. Problems Problem Code Start Date Resolved Date Status Carpal tunnel syndrome of lt arm [id number] Active Results Unknown or Not Available. Active Medications Medication Code Dose Units Frequency Route Modificatio n Start Date/Time Ibuprofen 200MG Oral Tablet 358266 3 TABLET THREE TIMES A DAY ORAL 08/03/2022 11:21 Prescription Detail TAKE 3 TABLET ORAL THREE TIMES A DAY FOR 3-5 DAYS THEN NEEDED Medications Administered During Visit Unknown or Not Available. Encounters Encounter Diagnosis Diagnosis Code Start Date Procedure on nervous system [id number] 09/26 Social History Smoking Status Code Start Date End Date Current every day smoker 943167437 Patient Decision Aids Unknown or Not Available. Discharge Instructions You were admitted to [facility] on 10/21/2022 00:00 with a principal diagnosis of Encounter for surgical aftercare following surgery on the nervous system You were discharged from [facility] on 10/21/2022 00:00 Should you have any questions prior [...]
--- OUTSIDE RECORDS SUMMARY | 2023-06-30 10:40 | XMS_ITS | CCD ---
Author Name Unknown Address [address] [place] [address] [phone] Organization Unknown Address [address] [place] [address] [phone] Care Team Providers Care Hospice Fellow Name Role Phone ROOMETARNALDO Attending Physician [phone] Vital Signs Unknown or Not Available. Allergies Allergy Code Allergy Type Reaction Status PENICILLINS (CLASS) 35180 Drug allergy UNKNOWN Act amara Procedures Procedure Code Procedure Type Date Nerve Conduction Studies 7-8 Studies 69353 CPT 09/14/2022 Needle EMG Ea Extremity w/Paraspinl Area Limited 00500 CPT 09/14/2022 History of Immunizations Unknown or Not Available. Problems Problem Code Start Date Resolved Date Status Carpal tunnel syndrome of lt arm 023728759969846 Active Results Unknown or Not Available. Active Medications Medication Code Dose Units Frequency Route Modificatio n Start Date/Time Ibuprofen 200MG Oral Tablet 037947 3 TABLET THREE TIMES A DAY ORAL 08/03/2022 11:21 Prescription Detail TAKE 3 TABLET ORAL THREE TIMES A DAY FOR 3-5 DAYS THEN NEEDED Medications Administered During Visit Unknown or Not Available. Encounters Encounter Diagnosis Diagnosis Code Start Date Anesthesia of skin R200 09/14/2022 Social History Smoking Status Code Start Date End Date Current every day smoker 230070894 Patient Decision Aids Unknown or Not Available. Discharge Instructions You were admitted to [facility] on 09/14/2022 12:20 with a principal diagnosis of Anesthesia of skin You had the following procedures done:Nerve Conduction Studies 7-8 StudiesNeedle EMG Ea Extremity w/Paraspinl Area Limited You were discharged from [facility] on 09/14/2022 12:20 Should you have any questions prior to [...]
--- OUTSIDE RECORDS SUMMARY | 2023-06-30 10:40 | XMS_ITS | CCD ---
Author Name Unknown Address [address] [place] [address] [phone] Organization Unknown Address [address] [place] [address] [phone] Care Team Providers Care Orchestra Conductor Name Role Phone DAVID HENSON Attending Physician [phone] Vital Signs Unknown or Not Available. Allergies Allergy Code Allergy Type Reaction Status PENICILLINS (CLASS) 29868 Drug allergy UNKNOWN Act amara Procedures Procedure Code Procedure Type Date Neuroplasty &/Or Transpositi on; Median Nerve At Carpal Tunnel 18570 CPT 10/12/2022 History of Immunizations Unknown or Not Available. Problems Problem Code Start Date Resolved Date Status Carpal tunnel syndrome of lt arm 424140566275269 Active Results Unknown or Not Available. Active Medications Medications Administered During Visit Medication Dose Units Frequency Route Date/Time of Last Dose ACETAMINOPHEN TABLET: 325MG 975 MG X1 PO 10/12/2022 07:23 CELECOXIB CAPSULE: 100MG 200 MG X1 PO 10/12/2022 07:23 Encounters Encounter Diagnosis Diagnosis Code Start Date Carpal tunnel syndrome, left upper limb G5602 10/12/2022 Social History Smoking Status Code Start Date End Date Current every day smoker 844460107 Patient Decision Aids Unknown or Not Available. Discharge Instructions You were admitted to [facility] on 10/12/2022 06:54 with a principal diagnosis of Carpal tunnel syndrome, left upper limb You had the following procedures done:Neuroplasty &/Or Transposition; Median Nerve At Carpal Tunnel You were discharged from [facility] on 10/12/2022 08:55 Should you have any questions prior to [...]
--- OUTSIDE RECORDS SUMMARY | 2023-06-30 10:40 | XMS_ITS | CCD ---
Author Name Unknown Address [address] [place] [address] [id number] Organization Unknown Address [address] [place] [address] [phone] Care Team Providers Care Poke In Name Role Phone NIRU PIPER Attending Physician [phone] NIRU PIPER Rounding (Secondary) Physician [phone] Vital Signs Unknown or Not Available. Allergies Allergy Code Allergy Type Reaction Status PENICILLINS (CLASS) 18299 Drug allergy UNKNOWN Act amara Procedures Unknown or Not Available. History of Immunizations Unknown or Not Available. Problems Problem Code Start Date Resolved Date Status Carpal tunnel syndrome of lt arm 272786616924101 Active Results Unknown or Not Available. Active Medications Medication Code Dose Units Frequency Route Modificatio n Start Date/Time Ibuprofen 200MG Oral Tablet 639409 3 TABLET THREE TIMES A DAY ORAL 08/03/2022 11:21 Prescription Detail TAKE 3 TABLET ORAL THREE TIMES A DAY FOR 3-5 DAYS THEN NEEDED Medications Administered During Visit Unknown or Not Available. Encounters Encounter Diagnosis Diagnosis Code Start Date Anesthesia of skin 749759018 08/06/2022 Social History Smoking Status Code Start Date End Date Current every day smoker 772868184 Patient Decision Aids Unknown or Not Available. Discharge Instructions You were admitted to [facility] on 08/06/2022 00:00 with a principal diagnosis of Anesthesia of skin You were discharged from [facility] on 08/06/2022 00:00 Should you have any questions prior [...]
--- OUTSIDE RECORDS SUMMARY | 2023-06-30 10:40 | XMS_ITS | CCD ---
Author Name Unknown Address [address] [place] [address] [phone] Organization Unknown Address [address] [place], [place] [phone] Care Team Providers Care Concert Promoter Name Role Phone DAVID HENSON Attending Physician [phone] DAVID HENSON Rounding (Secondary) Physic justen [phone] Vital Signs Unknown or Not Available. Allergies Allergy Code Allergy Type Reaction Status PENICILLINS (CLASS) 97293 Drug allergy UNKNOWN Act amara Procedures Unknown or Not Available. History of Immunizations Unknown or Not Available. Problems Problem Code Start Date Resolved Date Status Carpal tunnel syndrome of lt arm 099012297056004 Active Results Unknown or Not Available. Active Medications Medication Code Dose Units Frequency Route Modificatio n Start Date/Time Ibuprofen 200MG Oral Tablet 074523 3 TABLET THREE TIMES A DAY ORAL 08/03/2022 11:21 Prescription Detail TAKE 3 TABLET ORAL THREE TIMES A DAY FOR 3-5 DAYS THEN NEEDED Medications Administered During Visit Unknown or Not Available. Encounters Encounter Diagnosis Diagnosis Code Start Date Carpal tunnel syndrome, bilateral upper limbs G5 603 10/04/2022 Social History Smoking Status Code Start Date End Date Current every day smoker 379752615 Patient Decision Aids Unknown or Not Available. Discharge Instructions You were admitted to [facility] on 10/04/2022 00:00 with a principal diagnosis of Carpal tunnel syndrome, bilateral upper limbs You were discharged from [facility] on 10/04/2022 00:00 Should you have any questions prior [...]
--- OUTSIDE RECORDS SUMMARY | 2023-06-30 10:41 | XMS_ITS | CCD ---
Author Name Unknown Address [address] [place] [address] [phone] Organization Unknown Address [address] [place] [address] [phone] Care Team Providers Care Music Producer Name Role Phone LISETTE BERGMAN Attending Physician [phone] ASIF OLIVEROS Rounding (Secondary) Physician [phone] Vital Signs Unknown or Not Available. Allergies Allergy Code Allergy Type Reaction Status PENICILLINS (CLASS) 28298 Drug allergy UNKNOWN Act amara Procedures Unknown or Not Available. History of Immunizations Unknown or Not Available. Problems Problem Code Start Date Resolved Date Status Carpal tunnel syndrome of lt arm 935310817364239 3 Active High cholesterol 78179836 08/03/2022 Resolved Results STEVE COVID RHEONIX* - Edwardo ect Date/Time: 02/20/2022 10:13 Test Name Code Test Result Test Units Test Ref Rang e Tier- 01117-7 PRE-OP N/A SARS COV2 RNA: 58653-7 NEGATIVE N/A REFERENCE RANGE: NEGAT Active Medications Medication Code Dose Units Frequency Route Modificatio n Start Date/Time Ibuprofen 200MG Oral Tablet 525345 3 TABLET THREE TIMES A DAY ORAL 08/03/2022 11:21 Prescription Detail TAKE 3 TABLET ORAL THREE TIMES A DAY FOR 3-5 DAYS THEN NEEDED Medications Administered During Visit Unknown or Not Available. Encounters Encounter Diagnosis Diagnosis Code Start Date Pre-surgery testing 068525571 02/20/2022 Social History Smoking Status Code Start Date End Date Current every day smoker 904115808 Patient Decision Aids Unknown or Not Available. Discharge Instructions You were admitted to [facility] on 02/20/2022 16:29 with a principal diagnosis of Encounter for preprocedural laboratory examination You had the following tests done:STEVE COVID RHEONIX* You were discharged from [facility] on 02/20/2022 16:29 Should you have any questions prior to [...]
--- OUTSIDE RECORDS SUMMARY | 2023-06-30 10:41 | XMS_ITS | CCD ---
Author Name Unknown Address [address] [place] [address] [id number] Organization Unknown Address [address] [place] [address] [phone] Care Team Providers Care Boots And Shoes Supervisor Name Role Phone KAMRYN MARSHALL Attending Physician [phone] MICK FUNG Er Physician [phone] JANIE Guerin Registered Nurse [phone] Vital Signs Vital Sign Value Unit Date/Time Recent/Initial ? BMI (Body Mass Index) 32.49 kg/m^2 08/03/2022 10: 29 Initial VS Weight Measured 220 lbs 08/03/2022 10:29 Ini tial VS Height 69 in 08/03/2022 10:29 Initial VS BSA (Body Surface Area) 2.2 m^2 08/03/2022 1 0:29 Initial VS BP Systolic 142 mmHg 08/03/2022 10:29 Initial VS BP Diastolic 72 mmHg 08/03/2022 10:29 Initia l VS Respiratory Rate 18 bpm 08/03/2022 10:29 In itial VS Heart Rate 54 bpm 08/03/2022 10:29 Initial VS O2 % BldC Oximetry 100 % 08/03/2022 10:29 Initial VS Body Temperature 36.1 degrees 08/03/2022 10:29 In itial VS Allergies Allergy Code Allergy Type Reaction Status PENICILLINS (CLASS) 25823 Drug allergy UNKNOWN Act amara Procedures Unknown or Not Available. History of Immunizations Unknown or Not Available. Problems Problem Code Start Date Resolved Date Status Carpal tunnel syndrome of lt arm 910590624656990 Active High cholesterol 93462359 08/03/2022 Resolved Results Unknown or Not Available. Active Medications Unknown or Not Available. Medications Administered During Visit Unknown or Not Available. Encounters Encounter Diagnosis Diagnosis Code Start Date Carpal tunnel syndrome, left upper limb G5602 08/03/2022 Social History Smoking Status Code Start Date End Date Current every day smoker 504226884 Patient Decision Aids Patient Decision Aid Carpal Tunnel Syndrome Discharge Instructions You were admitted to on 08/03/2022 10:19 with a principal diagnosis of Carpal tunnel syndrome, left upper limb You were discharged from on 08/03/2022 11:40 Should you have any questions prior to discharge, please contact a member of your healthcare team. If you have left the hospital and have any questions, please contact your primary care physician. Chief Complaint and Reason For Visit Chief Complaint Date of Onset LEFT WRIST HAND PAIN 08/03/2022 Function Status Unknown or Not Available. Plan of Care Unknown or Not Available. Referral/Transition of Care Unknown or Not Available.
--- OUTSIDE RECORDS SUMMARY | 2023-06-30 10:41 | XMS_ITS | CCD ---
Author Name Unknown Address [address] [place] [address] [phone] Organization Unknown Address [address] [place] [address] [phone] Care Team Providers Care Tablet Tester Name Role Phone LISETTE BERGMAN Attending Physician [phone] Vital Signs Vital Sign Value Unit Date/Time Recent/Initial ? BP Systolic 153 mmHg 02/23/2022 10:42 Initial VS BP Diastolic 90 mmHg 02/23/2022 10:42 Initia l VS Respiratory Rate 19 bpm 02/23/2022 10:42 In itial VS Heart Rate 60 bpm 02/23/2022 10:42 Initial VS O2 % BldC Oximetry 97 % 02/23/2022 10:42 Initial VS Body Temperature 36 degrees 02/23/2022 10:42 In itial VS Allergies Allergy Code Allergy Type Reaction Status PENICILLINS (CLASS) 74887 Drug allergy UNKNOWN Act amara Procedures Procedure Code Procedure Type Date Colsc Flx w/[place] [address] CPT 02/23/2022 History of Immunizations Unknown or Not Available. Problems Problem Code Start Date Resolved Date Status Carpal tunnel syndrome of lt arm 453519974127135 Active High cholesterol 63560129 08/03/2022 Resolved Results Unknown or Not Available. Active Medications Medication Code Dose Units Frequency Route Modificatio n Start Date/Time Ibuprofen 200MG Oral Tablet 608393 3 TABLET THREE TIMES A DAY ORAL 08/03/2022 11:21 Prescription Detail TAKE 3 TABLET ORAL THREE TIMES A DAY FOR 3-5 DAYS THEN NEEDED Medications Administered During Visit Unknown or Not Available. Encounters Encounter Diagnosis Diagnosis Code Start Date Encounter for screening for malignant neoplasm o f colon Z1211 02/23/2022 Social History Smoking Status Code Start Date End Date Current every day smoker 724278745 Patient Decision Aids Unknown or Not Available. Discharge Instructions You were admitted to [facility] on 02/23/2022 09:20 with a principal diagnosis of Encounter for screening for malignant neoplasm of colon You had the following procedures done:Colsc Flx w/Rmvl Of Tumor Polyp Lesion Snare Tq You were discharged from [facility] on 02/23/2022 11:23 Should you have any questions prior to [...]
[2023-06-30 15:03] LABS: Abs Immature Grans 0.02 10^3/uL (0.0-0.06); Absolute Basophil Count 0.05 10^3/uL (0.0-0.2); Absolute Eosinophil Count 0.26 10^3/uL (0.0-0.7); Absolute Lymphocyte Count 1.74 10^3/uL (1.2-3.4); Absolute Monocyte Count 0.77 10^3/uL (0.1-0.8); Absolute Neutrophil Count 4.76 10^3/uL (1.2-6.7); Basophils % 0.7; Eosinophils % 3.4; HCT 45.3 % (40.0-50.0); HGB 14.8 g/dL (13.5-17.5); Immature Grans % 0.3; Lymphocytes % 22.9; MCH 31.4 pg (27.0-33.0); MCHC 32.7 % (32.0-36.0); MCV 96 fL (80-95); MPV 11.1 fL (8.0-11.0); Monocytes % 10.1; Neutrophils % 62.6; Platelet Count 244 10^3/uL (130-400); RBC 4.72 10^6/uL (4.36-5.78); RDW 14.1 % (11.8-14.1); RDW-SD 49.9 fL
[2023-06-30 15:50] LABS: ALT 53 U/L (16-63); AST 38 U/L (15-37); Albumin 3.5 g/dL (3.4-5.0); Alkaline Phosphatase 161 U/L (46-116); Anion Gap 8.8 mmol/L (3-11); BUN 18 mg/dL (7-18); Bilirubin, Total 0.4 mg/dL (0.2-1.0); CO2 26.2 mmol/L (21.0-32.0); CREATININE 1.1 mg/dL (0.70-1.30); Calcium 9.3 mg/dL (8.5-10.1); Chloride 104 mmol/L (98-107); Glucose 105 mg/dL (74-106); Potassium 4.6 mmol/L (3.5-5.1); Sodium 139 mmol/L (136-145); Total Protein 7.5 g/dL (6.4-8.2)
== END 2023-06-30 10:38 | disposition home or self-care (01) ==
LOC: LBN 10:37
PROVIDERS: PCP Nurse Practitioner Family; Visit Provider Nurse Practitioner Family
DX: M35.1 Other overlap syndromes (principal); G62.89 Other specified polyneuropathies; Z79.899 Other long term (current) drug therapy
CPT/HCPCS: 80053; 85025

== ENCOUNTER 2023-09-30 18:34 | Outpatient (REF) | payer MEDICARE, SELFPAY ==
[2023-09-30 15:06] LABS: Abs Immature Grans 0.05 10^3/uL (0.0-0.06); Absolute Basophil Count 0.09 10^3/uL (0.0-0.2); Absolute Eosinophil Count 0.23 10^3/uL (0.0-0.7); Absolute Lymphocyte Count 1.53 10^3/uL (1.2-3.4); Absolute Monocyte Count 0.75 10^3/uL (0.1-0.8); Absolute Neutrophil Count 7.42 10^3/uL (1.2-6.7); Basophils % 0.9; Eosinophils % 2.3; HCT 51.1 % (40.0-50.0); HGB 16.8 g/dL (13.5-17.5); Immature Grans % 0.5; Lymphocytes % 15.2; MCH 31.8 pg (27.0-33.0); MCHC 32.9 % (32.0-36.0); MCV 97 fL (80-95); Monocytes % 7.4; Neutrophils % 73.7; RBC 5.28 10^6/uL (4.36-5.78); RDW 14.2 % (11.8-14.1); RDW-SD 50.8 fL; WBC 10.07 10^3/uL (4.4-10.8)
[2023-09-30 15:18] LABS: Diff Comment PLT Morph Reviewed; RBC Morphology Normal
[2023-09-30 15:37] LABS: ALT 30 U/L (16-63); AST 27 U/L (15-37); Albumin 3.9 g/dL (3.4-5.0); Alkaline Phosphatase 166 U/L (46-116); Anion Gap 10.5 mmol/L (3-11); BUN 19 mg/dL (7-18); Bilirubin, Total 0.4 mg/dL (0.2-1.0); CO2 26.5 mmol/L (21.0-32.0); CREATININE 1.2 mg/dL (0.70-1.30); Calcium 9.7 mg/dL (8.5-10.1); Chloride 103 mmol/L (98-107); Estimated GFR 68.38 (mL/min/1.73m2); Glucose 92 mg/dL (74-106); Potassium 4.8 mmol/L (3.5-5.1); Sodium 140 mmol/L (136-145)
== END 2023-09-30 18:35 | disposition home or self-care (01) ==
LOC: LBN 18:34
PROVIDERS: PCP Nurse Practitioner Family; Referring Provider Nurse Practitioner Family; Visit Provider Nurse Practitioner Family
DX: M35.1 Other overlap syndromes (principal); G62.89 Other specified polyneuropathies; Z79.899 Other long term (current) drug therapy
CPT/HCPCS: 80053; 85025

== ENCOUNTER 2023-12-30 09:00 | Outpatient (REF) | payer MEDICARE, SELFPAY ==
[2023-12-30 14:48] LABS: Abs Immature Grans 0.03 10^3/uL (0.0-0.06); Absolute Basophil Count 0.08 10^3/uL (0.0-0.2); Absolute Eosinophil Count 0.19 10^3/uL (0.0-0.7); Absolute Lymphocyte Count 1.26 10^3/uL (1.2-3.4); Absolute Monocyte Count 0.76 10^3/uL (0.1-0.8); Absolute Neutrophil Count 7.45 10^3/uL (1.2-6.7); Basophils % 0.8 %; Eosinophils % 1.9 %; HCT 46.4 % (40.0-50.0); HGB 15.9 g/dL (13.5-17.5); Immature Grans % 0.3 %; Lymphocytes % 12.9 %; MCH 33.1 pg (27.0-33.0); MCHC 34.3 % (32.0-36.0); MCV 97 fL (80-95); MPV 11.6 fL (8.0-11.0); Monocytes % 7.8 %; Neutrophils % 76.3 %; Platelet Count 239 10^3/uL (130-400); RDW-SD 50.1 fL; WBC 9.77 10^3/uL (4.4-10.8)
[2023-12-30 15:24] LABS: ALT 24 U/L (16-63); AST 24 U/L (15-37); Albumin 3.7 g/dL (3.4-5.0); Alkaline Phosphatase 142 U/L (46-116); Anion Gap 8.6 mmol/L (3-11); BUN 18 mg/dL (7-18); Bilirubin, Total 0.44 mg/dL (0.2-1.0); CO2 25.4 mmol/L (21.0-32.0); CREATININE 1.1 mg/dL (0.70-1.30); Chloride 110 mmol/L (98-107); Glucose 100 mg/dL (74-106); Potassium 4.3 mmol/L (3.5-5.1); Sodium 144 mmol/L (136-145); Total Protein 7.3 g/dL (6.4-8.2)
== END 2023-12-30 09:01 | disposition home or self-care (01) ==
LOC: NCHCN 09:00
PROVIDERS: Nurse Practitioner Family; PCP Nurse Practitioner Family; Visit Provider Family Medicine
DX: M35.1 Other overlap syndromes (principal); G89.29 Other chronic pain; Z79.899 Other long term (current) drug therapy
CPT/HCPCS: 80053; 85025

== ENCOUNTER 2024-03-30 11:35 | Outpatient (REF) | payer MEDICARE, SELFPAY ==
[2024-03-30 15:04] LABS: Abs Immature Grans 0.02 10^3/uL (0.0-0.06); Absolute Basophil Count 0.08 10^3/uL (0.0-0.2); Absolute Eosinophil Count 0.18 10^3/uL (0.0-0.7); Absolute Lymphocyte Count 1.39 10^3/uL (1.2-3.4); Absolute Monocyte Count 0.76 10^3/uL (0.1-0.8); Absolute Neutrophil Count 6.29 10^3/uL (1.2-6.7); Basophils % 0.9 %; Eosinophils % 2.1 %; HCT 47.1 % (40.0-50.0); HGB 15.5 g/dL (13.5-17.5); Immature Grans % 0.2 %; Lymphocytes % 15.9 %; MCH 32.6 pg (27.0-33.0); MCHC 32.9 % (32.0-36.0); MCV 99 fL (80-95); Monocytes % 8.7 %; Neutrophils % 72.2 %; Platelet Count 228 10^3/uL (130-400); RBC 4.75 10^6/uL (4.36-5.78); RDW 13.4 % (11.8-14.1); RDW-SD 49.5 fL; WBC 8.72 10^3/uL (4.4-10.8)
[2024-03-30 15:31] LABS: ALT 30 U/L (16-63); AST 27 U/L (15-37); Albumin 3.5 g/dL (3.4-5.0); Alkaline Phosphatase 149 U/L (46-116); Anion Gap 7.7 mmol/L (3-11); BUN 20 mg/dL (7-18); CO2 26.3 mmol/L (21.0-32.0); CREATININE 1.2 mg/dL (0.70-1.30); Calcium 9.2 mg/dL (8.5-10.1); Chloride 106 mmol/L (98-107); Estimated GFR 68.38 (mL/min/1.73m2); Glucose 103 mg/dL (74-106); Potassium 4.2 mmol/L (3.5-5.1); Sodium 140 mmol/L (136-145); Total Protein 7.2 g/dL (6.4-8.2)
== END 2024-03-30 11:36 | disposition home or self-care (01) ==
LOC: LBN 11:35
PROVIDERS: PCP Nurse Practitioner Family; Visit Provider Nurse Practitioner Family
DX: Z79.899 Other long term (current) drug therapy (principal)
CPT/HCPCS: 80053; 85025

== ENCOUNTER 2024-07-06 15:33 | Outpatient (REF) | payer MEDICARE, SELFPAY ==
[2024-07-06 14:32] LABS: Abs Immature Grans 0.02 10^3/uL (0.0-0.06); Absolute Basophil Count 0.06 10^3/uL (0.0-0.2); Absolute Eosinophil Count 0.09 10^3/uL (0.0-0.7); Absolute Lymphocyte Count 1.29 10^3/uL (1.2-3.4); Absolute Monocyte Count 0.83 10^3/uL (0.1-0.8); Absolute Neutrophil Count 4.42 10^3/uL (1.2-6.7); Basophils % 0.9 %; Eosinophils % 1.3 %; HGB 17.1 g/dL (13.5-17.5); Immature Grans % 0.3 %; Lymphocytes % 19.2 %; MCH 32.2 pg (27.0-33.0); MCHC 33.5 % (32.0-36.0); MCV 96 fL (80-95); Monocytes % 12.4 %; Neutrophils % 65.9 %; Platelet Count 234 10^3/uL (130-400); RBC 5.31 10^6/uL (4.36-5.78); RDW 13.8 % (11.8-14.1); RDW-SD 48.8 fL; WBC 6.71 10^3/uL (4.4-10.8)
[2024-07-06 14:50] LABS: ALT 26 U/L (16-63); AST 25 U/L (15-37); Albumin 3.8 g/dL (3.4-5.0); Alkaline Phosphatase 172 U/L (46-116); BUN 22 mg/dL (7-18); Bilirubin, Total 0.52 mg/dL (0.2-1.0); CREATININE 1.2 mg/dL (0.70-1.30); Calcium 9.3 mg/dL (8.5-10.1); Chloride 106 mmol/L (98-107); Estimated GFR 67.95 (mL/min/1.73m2); Glucose 100 mg/dL (74-106); Potassium 4.2 mmol/L (3.5-5.1); Sodium 141 mmol/L (136-145); Total Protein 7.8 g/dL (6.4-8.2)
== END 2024-07-06 15:34 | disposition home or self-care (01) ==
LOC: NCHCN 15:33
PROVIDERS: Nurse Practitioner Family; PCP Nurse Practitioner Family; Visit Provider Family Medicine
DX: M35.1 Other overlap syndromes (principal)
CPT/HCPCS: 80053; 85025

== ENCOUNTER 2024-10-05 10:25 | Outpatient (REF) | payer MEDICARE, SELFPAY ==
[2024-10-05 14:20] LABS: Abs Immature Grans 0.04 10^3/uL (0.0-0.06); Absolute Basophil Count 0.13 10^3/uL (0.0-0.2); Absolute Eosinophil Count 0.29 10^3/uL (0.0-0.7); Absolute Lymphocyte Count 1.32 10^3/uL (1.2-3.4); Absolute Monocyte Count 0.67 10^3/uL (0.1-0.8); Absolute Neutrophil Count 5.47 10^3/uL (1.2-6.7); Basophils % 1.6 %; Eosinophils % 3.7 %; HCT 49.5 % (40.0-50.0); HGB 16.2 g/dL (13.5-17.5); Immature Grans % 0.5 %; Lymphocytes % 16.7 %; MCH 31.7 pg (27.0-33.0); MCHC 32.7 % (32.0-36.0); MCV 97 fL (80-95); MPV 10.9 fL (8.0-11.0); Monocytes % 8.5 %; Platelet Count 240 10^3/uL (130-400); RBC 5.11 10^6/uL (4.36-5.78); RDW 13.8 % (11.8-14.1); RDW-SD 49.6 fL; WBC 7.92 10^3/uL (4.4-10.8)
== END 2024-10-05 10:26 | disposition home or self-care (01) ==
LOC: LBN 10:25
PROVIDERS: PCP Nurse Practitioner Family; Visit Provider Nurse Practitioner Family
DX: M35.1 Other overlap syndromes (principal); Z79.899 Other long term (current) drug therapy
CPT/HCPCS: 85025

== ENCOUNTER 2025-01-07 16:10 | Outpatient (REF) | payer MEDICARE, SELFPAY ==
[2025-01-07 18:49] LABS: Abs Immature Grans 0.02 10^3/uL (0.0-0.06); HCT 48.2 % (40.0-50.0); HGB 16.1 g/dL (13.5-17.5); Immature Grans % 0.3 %; MCH 32.4 pg (27.0-33.0); MCHC 33.4 % (32.0-36.0); MCV 97 fL (80-95); MPV 11.2 fL (8.0-11.0); Platelet Count 234 10^3/uL (130-400); RBC 4.97 10^6/uL (4.36-5.78); RDW 14.4 % (11.8-14.1); RDW-SD 51.4 fL; WBC 7.94 10^3/uL (4.4-10.8)
[2025-01-07 19:10] LABS: ALT 29 U/L (16-63); AST 26 U/L (15-37); Albumin 3.6 g/dL (3.4-5.0); Alkaline Phosphatase 166 U/L (46-116); Anion Gap 9.5 mmol/L (3-11); BUN 21 mg/dL (7-18); Bilirubin, Total 0.4 mg/dL (0.2-1.0); CO2 26.5 mmol/L (21.0-32.0); Calcium 9.3 mg/dL (8.5-10.1); Chloride 106 mmol/L (98-107); Estimated GFR 75.43 (mL/min/1.73m2); Glucose 89 mg/dL (74-106); Potassium 4.6 mmol/L (3.5-5.1); Sodium 142 mmol/L (136-145); Total Protein 7.6 g/dL (6.4-8.2)
== END 2025-01-07 16:11 | disposition home or self-care (01) ==
LOC: LBN 16:10
PROVIDERS: PCP Nurse Practitioner Family; Visit Provider Nurse Practitioner Family
DX: Z79.899 Other long term (current) drug therapy (principal); M35.1 Other overlap syndromes; F17.200 Nicotine dependence, unspecified, uncomplicated
CPT/HCPCS: 80053; 85025

== ENCOUNTER 2025-04-09 18:10 | Outpatient (REF) | payer MEDICARE, SELFPAY ==
[2025-04-09 20:10] LABS: Abs Immature Grans 0.03 10^3/uL (0.0-0.06); HCT 45.6 % (40.0-50.0); HGB 14.9 g/dL (13.5-17.5); Immature Grans % 0.4 %; MCH 31.8 pg (27.0-33.0); MCHC 32.7 % (32.0-36.0); MCV 97 fL (80-95); MPV 11.4 fL (8.0-11.0); Platelet Count 229 10^3/uL (130-400); RBC 4.68 10^6/uL (4.36-5.78); RDW 13.8 % (11.8-14.1); RDW-SD 49.1 fL; WBC 7.26 10^3/uL (4.4-10.8)
[2025-04-09 20:28] LABS: ALT 26 U/L (16-63); AST 27 U/L (15-37); Albumin 3.5 g/dL (3.4-5.0); Alkaline Phosphatase 158 U/L (46-116); Anion Gap 9.1 mmol/L (3-11); BUN 17 mg/dL (7-18); Bilirubin, Total 0.4 mg/dL (0.2-1.0); CO2 24.9 mmol/L (21.0-32.0); Calcium 9.1 mg/dL (8.5-10.1); Chloride 105 mmol/L (98-107); Estimated GFR 84.57 (mL/min/1.73m2); Glucose 91 mg/dL (74-106); Potassium 4.5 mmol/L (3.5-5.1); Sodium 139 mmol/L (136-145); Total Protein 7.1 g/dL (6.4-8.2)
== END 2025-04-09 18:11 | disposition home or self-care (01) ==
LOC: LBN 18:10
PROVIDERS: PCP Nurse Practitioner Family; Visit Provider Nurse Practitioner Family
DX: M35.1 Other overlap syndromes (principal)
CPT/HCPCS: 80053; 85025